=== PATIENT | female | born 1980 | race Caucasian/White ===

== ENCOUNTER 2017-03-23 19:09 | Emergency (ER) | payer OTHER ==
--- NOTE | 2017-03-27 19:08 | ER ---
ADMIT: 03/23/2017 RM/LOC: ER [facility] MR#: [id number] [address] [id number] LICHA MARIE [address] [place] [address] [facility] Emergency Room Report SEX: F AGE: 36 : 1980 DATE: 03/23/2017 HISTORY OF PRESENT ILLNESS: The patient is a 36-year-old female with past medical history of anxiety, who came to the ER with chief complaint of feeling funny on the chest, left anterior chest. The patient states she had previous symptoms in the past which always happens when the patient is very anxious. The patient denies any chest pain or shortness of breath. The patient is not taking any control pills or hormonal contraception. The patient denies any swelling of the legs. The patient also did not have any syncope. PHYSICAL EXAMINATION: VITAL SIGNS: The patient has stable vitals. HEAD AND NECK: Noncontributory. Trachea midline. CHEST: Clear bilaterally. HEART: Normal S1, S2 without any murmurs. There are no gallops. ABDOMEN: Soft without any masses, no pulsating masses. EXTREMITIES: No swelling or tenderness or pain. EMERGENCY DEPARTMENT COURSE: EKG was normal sinus rhythm with a rate of 70s. The patient received Ativan 1 mg p.o., was re-examined, did not develop any new symptoms. Anxiety moderately was controlled. The patient is stable to be discharged to home. The patient also stated she has some tooth pain, and in the physical examination, there were some impacted teeth on the molar on the right side and the lower right side without any signs of gingivitis or abscesses. The patient was discharged to home with just 10 pills of [place] p.r.n. for breakthrough pain and strict advice to follow up with the dentist as soon as possible. The patient understood the plan and acknowledged she would follow up. Zion Gunter MD/ inna JOB #: [id number] CC: Zion Gunter MD, Attending Physician Gonsalo Bond MD, Family Physician
== END 2017-03-23 20:47 | disposition home or self-care (01) ==
LOC: ER 19:09
DX: F41.9 Anxiety disorder, unspecified (principal); R00.2 Palpitations; Z90.49 Acquired absence of other specified parts of digestive tract; Z90.89 Acquired absence of other organs; Z79.899 Other long term (current) drug therapy; Z88.2 Allergy status to sulfonamides